=== PATIENT | male | born 1995 | race Hispanic/Latino ===

== ENCOUNTER 2019-06-21 23:14 | Emergency (ER) | payer SELFPAY ==
--- NOTE | 2019-06-21 23:45 | RAD ---
TWO VIEWS CHEST: Comparison: None. History: Chest pain that began 2 days ago. FINDINGS: Two views of the chest show normal sized cardiomediastinal silhouette. There is no evidence of consol idation, mass, or pleural effusion. The bones are unremarkable. IMPRESSION: No evidence of acute cardiopulmonary disease. POS: [facility]
--- NOTE | 2019-06-25 14:08 | EKG ---
Test Reason : CP Blood Pressure : / mmHG Vent. Rate : 074 BPM Atrial Rate : 074 BPM P-R Int : 116 ms QRS Dur : 078 ms QT Int : 384 ms P-R-T Axes : 066 077 050 degrees QTc Int : 426 ms Normal sinus rhythm Normal ECG Confirmed by STEPHAN IGNACIO ([id number]), art editor PENG DE LA VEGA ([id number] on 06/25/2019 2:07:55 PM Referred By: Confirmed By:STEPHAN IGNACIO
== END 2019-06-22 00:05 | disposition home or self-care (01) ==
LOC: ERS 23:14
DX: R07.89 Other chest pain (principal)
CPT/HCPCS: 71046; 93005